=== PATIENT | female | born 1955 ===

== ENCOUNTER → 2018-05-25 | Outpatient (CLI) | payer BC | LOC: LAB 11:09 | PROVIDERS: ATTEND Internal Medicine Rheumatology | DX: L40.50 Arthropathic psoriasis, unspecified (principal) | CPT/HCPCS: 36415; 85652; 86141 ==

== ENCOUNTER → 2018-09-28 | Outpatient (CLI) | payer MEDICARE, OTHER | LOC: LAB 10:52 | PROVIDERS: ATTEND Internal Medicine Rheumatology | DX: L40.50 Arthropathic psoriasis, unspecified (principal); M79.7 Fibromyalgia | CPT/HCPCS: 36415; 85652; 86141 ==